=== PATIENT | female | born 1975 | race Caucasian/White ===

== ENCOUNTER 2020-05-01 08:00 | Outpatient (CLI) | payer OTHER ==
[~2020-05-01] VITALS: Ht 170.2 cm; Wt 104.5 kg
[~2020-05-01 08:00] MED LIST: ACEB200C13 PO; CALC-126 PO; CYAN1TAB29 PO; ESOM40CA PO; HYDR-3246 PO; LOVA20TA2 PO; MAGN400T9 PO; METH750T87 PO; MULT-658 PO; MV-M1TAB16 PO; OMEG1CAP30 PO; SERT100T PO; TRAZ50TA66 PO
[2020-05-01] MEDS ORDERED: LEVO25TA2 PO (15:59)
[2020-05-01] MEDS ORDERED: BUPR300T94 PO (15:59)
== END 2020-05-01 23:59 | disposition home or self-care (01) ==
LOC: STAR 08:00 → EDSTATUS 05-03 10:45
PROVIDERS: ATTEND Orthopaedic Surgery Hand Surgery
DX: Z20.828 Contact with and (suspected) exposure to other viral communicable diseases (principal)
CPT/HCPCS: 87635